=== PATIENT | male | born 1945 | race Caucasian/White ===

== ENCOUNTER 2021-12-07 04:14 | Emergency (ER) | payer MEDICARE, OTHER ==
[~2021-12-07 04:14] MED LIST: LISINOPRIL10 MG PO; ZOFRAN ODT 4 MG4 MG PO
== END 2021-12-07 05:54 | disposition home or self-care (01) ==
LOC: ER1 04:14
DX: T15.01XA Foreign body in cornea, right eye, initial encounter (principal); X58.XXXA Exposure to other specified factors, initial encounter
CPT/HCPCS: 65220; 99283